=== PATIENT | male | born 1950 | race Caucasian/White ===

== ENCOUNTER 2024-01-14 11:50 | Emergency (ER) | payer OTHER, SELFPAY ==
[2024-01-14 12:26] VITALS: BP 135/87
--- NOTE | 2024-01-14 12:33 | ED.PDOC.TRB ---
ED Provider Triage
-
Patient seen by provider in Triage?: Seen in Triage
73-year-old male presents emergency department with multiple symptoms been ongoing for the last 2 weeks including fatigue, generalized weakness, shortness of breath, weight loss, decreased p.o. intake to solids and liquids, dark urine and generally
feeling unwell. No specific symptom brought patient to the ER today. No fevers. Overall healthy. Previous history of melanoma but not currently undergoing any current treatments. Hemodynamically stable. No acute distress but does appear
fatigued. Labs ordered. Stable for waiting room
[2024-01-14 12:54] LABS: % Basophils 0.7 % (0-2); % Immature Granulocytes 0.6 % (0-0.5); % Lymphocytes 12.6 % (20.5-51.1); % Monocytes 7.7 % (1.7-9.3); % Neutrophils 75.4 % (42.2-75.2); Absolute Basophils 0.1 10^3/uL (0-0.2); Absolute Eosinophils 0.3 10^3/uL (0-0.7); Absolute Immature Granulocytes 0.1 10^3/uL (0-0.05); Absolute Lymphocytes 1.1 10^3/uL (1.2-3.4); Absolute Monocytes 0.7 10^3/uL (0.1-0.6); Absolute Neutrophils 6.9 10^3/uL (1.4-6.5); Hematocrit 41.8 % (39.0-52.0); Hemoglobin 14.6 g/dL (13.0-18.0); Mean Corp Hgb Conc. 34.9 g/dL (33.0-37.0); Mean Corpuscular Hgb 31.3 pg (27.0-31.0); Mean Corpuscular Volume 89.5 fL (80.0-94.0); Mean Platelet Volume 10.6 fL (7.4-10.4); Nucleated Red Blood Cells % 0 % (-); Platelet Count 248 10^3/uL (130-400); Red Blood Cell Count 4.67 10^6/uL (4.70-6.10); Red Cell Dist. Width 13.1 % (11.5-14.5); White Blood Cell Count 9.1 10^3/uL (4.8-10.8)
[2024-01-14 13:07] LABS: ALT (SGPT) 168 U/L (0-50); AST (SGOT) 152 U/L (17-59); Albumin 3.7 g/dl (3.5-5.0); Alkaline Phosphatase 119 U/L (38-126); Blood Urea Nitrogen 20 mg/dl (9-20); Calcium 8.9 mg/dl (8.4-10.2); Carbon Dioxide 25 mmol/L (22-30); Chloride 102 mmol/L (98-107); Glucose 177 mg/dl (70-99); Potassium 4.3 mmol/L (3.5-5.1); Sodium 137 mmol/L (135-145); Total Bilirubin 0.4 mg/dl (0.2-1.3); Total Protein 6.9 g/dl (6.3-8.2); eGFR > 60.00
[2024-01-14 16:00] VITALS: BP 152/107
[2024-01-14 16:19] VITALS: BMI 26.0
[2024-01-14] MEDS: NSS 1000 IV (16:49)
--- NOTE | 2024-01-14 16:50 | EDRN ---
this RN attempted to placed a PIV and obtain labs, this RN notified IV team and IV team was able to place a PIV
[2024-01-14 17:00] VITALS: BP 125/78
[2024-01-14 17:10] LABS: Erythrocyte Sed Rate 42 mm/hour (0-20)
[2024-01-14 18:10] LABS: Urine Albumin Trace (Neg - Trace); Urine Bilirubin Negative (Negative); Urine Character Clear (Clear); Urine Color Yellow; Urine Glucose Negative (Negative); Urine Ketone Negative (Negative); Urine Leukocyte Trace (Negative); Urine Nitrite Negative (Negative); Urine Occult Blood Negative (Negative); Urine Specific Gravity 1.015 (<1.030); Urine Urobilinogen Negative (Neg - 1+)
[2024-01-14 18:13] LABS: Urine Red Blood Cell 0-2 /HPF (0-2); Urine White Cell 0-2 /HPF (0-5)
[2024-01-14 18:23] VITALS: BP 141/95
[2024-01-14 18:24] LABS: TSH Reflex To Free T4 0.67 uIU/ml (0.47-4.68)
[2024-01-14 18:26] LABS: COVID-19 Antigen Negative (Negative)
[2024-01-14 19:00] VITALS: BP 160/85
--- NOTE | 2024-01-14 19:55 | ED.GENMED ---
History of Present Illness
<Dony Bae PA-C - Last Filed: 01/14/24 23:43>
General
Chief Complaint: Breathing Problem
Source: patient
Exam Limitations: none
Time Seen by Provider: 01/14/24 15:57
Travel History
Have you had any contact with someone who has COVID-19?: No
Do you have any symptoms of coronavirus? Fever > 100 degrees, chills, cough, shortness of breath, sore throat, loss of taste or smell, muscle aches, or headache?: No
History of Present Illness
History of Present Illness:
73-year-old male presents with 7 to 10 days worth of fatigue lack of appetite weight loss cough shortness of breath. He notes no notable vomiting. He is moving his bowels normally. No known sick contacts. No other complaints at this time. He
saw his family doctor earlier this week and they did blood work which demonstrated elevated CRP and started on cefuroxime. He has had total of 2 doses of
Past History
<Dony Bae PA-C - Last Filed: 01/14/24 23:43>
Past History
ED Past Medical History: Seizures and Other (Past history of melanoma)
ED Past Surgical History: Other (Resection of skin melanoma)
Social History
Tobacco: Non-smoker
Alcohol: None
Personal:
Living: with family
Family History
Family History: Negative Diabetes, Hypertension, Early CAD, Asthma or Cancer
Phy Exam
<Dony Bae PA-C - Last Filed: 01/14/24 23:43>
Physical Exam
Physical Exam:
General: Well-appearing male no acute respiratory distress
HEENT: Normocephalic atraumatic
Heart: Regular rate and rhythm no murmurs
Lungs: No obvious wheeze or rales
Extremities: No cyanosis
Scores
<Dony Bae PA-C - Last Filed: 01/14/24 23:43>
Heart Failure Risk
Heart Failure Risk Score: Not Applicable
Course
<Dony Bae PA-C - Last Filed: 01/14/24 23:43>
Orders/Labs/Results
Orders:
Orders
01/14/24 12:39
C-Reactive Protein Urgent
Complete Blood Count/With Diff Urgent
Comprehensive Metabolic Panel Urgent
Erythrocyte Sed Rate Urgent
Lyme Progressive Urgent
TSH Reflex To Free T4 Urgent
Comment: SED RATE,CRP,LYME PROGRESSIVE,TSH REFLEX ADDED ON BY FLOOR 4:30PM 01-14-24
01/14/24 16:27
Add On- LAB Urgent
Tests Added?: crp, lyme progressive, sed rate, tsh relfex to t4
01/14/24 16:29
CR Chest - 2 Views Urgent
Comment:
Reason For Exam: cough, sob
01/14/24 16:45
0.9% Sodium Chloride 1000 ml [Nss] 1,000 ml IV BOLUS
01/14/24 17:34
COVID-19 Antigen Urgent
Source: Nasal Swab
Urinalysis Reflex To Culture Urgent
Date Specimen was Collected: 01/14/24
Time Specimen was Collected: 15:54
Urine Microscopic Reflex Cult Urgent
Blood Culture Q30M
DARIN Source: Blood/Venous
Specimen Description:
Blood Culture Q30M
DARIN Source: Blood/Venous
Specimen Description:
01/14/24 19:02
Electrocardiogram (*1) Urgent
Reason for Study: Shortness of Breath
EKG- Treatment ONCE
Abnormal Lab Results
01/14/24 01/14/24
12:39 17:34
RBC 4.67 L 10^6/uL
(4.70-6.10)
MCH 31.3 H pg
(27.0-31.0)
MPV 10.6 H fL
(7.4-10.4)
Abs Immat Gran (auto) 0.1 H 10^3/uL
(0-0.05)
Absolute Neuts (auto) 6.9 H 10^3/uL
(1.4-6.5)
Absolute Lymphs (auto) 1.1 L 10^3/uL
(1.2-3.4)
Absolute Monos (auto) 0.7 H 10^3/uL
(0.1-0.6)
Immature Gran % 0.6 H %
(0-0.5)
Neutrophils % 75.4 H %
(42.2-75.2)
Lymphocytes % 12.6 L %
(20.5-51.1)
ESR 42 H mm/hour
(0-20)
Glucose 177 H mg/dl
(70-99)
AST 152 H U/L
(17-59)
ALT 168 H U/L
(0-50)
C-Reactive Protein 253.70 H mg/L
(0.0-10.00)
Leukocyte Esterase Rfl Trace A
(Negative)
01/14/24 12:39
01/14/24 12:39
Vital Signs
Initial and Last Documented VS:
Initial Vital Signs
Temp Pulse Resp BP Pulse Ox
98.1 F 71 20 135/87 96
01/14/24 12:26 01/14/24 12:26 01/14/24 12:26 01/14/24 12:26 01/14/24 12:26
Last Documented Vital Signs
Temp Pulse Resp BP Pulse Ox
98.1 F 55 18 127/78 95
01/14/24 12:26 01/14/24 17:00 01/14/24 17:54 01/14/24 20:00 01/14/24 20:00
<Rusty Carrera, DO - Last Filed: 01/15/24 12:43>
Orders/Labs/Results
Orders:
Orders
01/14/24 12:39
C-Reactive Protein Urgent
Complete Blood Count/With Diff Urgent
Comprehensive Metabolic Panel Urgent
Erythrocyte Sed Rate Urgent
Lyme Progressive Urgent
TSH Reflex To Free T4 Urgent
Comment: SED RATE,CRP,LYME PROGRESSIVE,TSH REFLEX ADDED ON BY FLOOR 4:30PM 01-14-24
01/14/24 16:27
Add On- LAB Urgent
Tests Added?: crp, lyme progressive, sed rate, tsh relfex to t4
01/14/24 16:29
CR Chest - 2 Views Urgent
Comment:
Reason For Exam: cough, sob
01/14/24 16:45
0.9% Sodium Chloride 1000 ml [Nss] 1,000 ml IV BOLUS
01/14/24 17:34
COVID-19 Antigen Urgent
Source: Nasal Swab
Urinalysis Reflex To Culture Urgent
Date Specimen was Collected: 01/14/24
Time Specimen was Collected: 15:54
Urine Microscopic Reflex Cult Urgent
Blood Culture Q30M
DARIN Source: Blood/Venous
Specimen Description:
Blood Culture Q30M
DARIN Source: Blood/Venous
Specimen Description:
01/14/24 19:02
Electrocardiogram (*1) Urgent
Reason for Study: Shortness of Breath
EKG- Treatment ONCE
Abnormal Lab Results
01/14/24 01/14/24
12:39 17:34
RBC 4.67 L 10^6/uL
(4.70-6.10)
MCH 31.3 H pg
(27.0-31.0)
MPV 10.6 H fL
(7.4-10.4)
Abs Immat Gran (auto) 0.1 H 10^3/uL
(0-0.05)
Absolute Neuts (auto) 6.9 H 10^3/uL
(1.4-6.5)
Absolute Lymphs (auto) 1.1 L 10^3/uL
(1.2-3.4)
Absolute Monos (auto) 0.7 H 10^3/uL
(0.1-0.6)
Immature Gran % 0.6 H %
(0-0.5)
Neutrophils % 75.4 H %
(42.2-75.2)
Lymphocytes % 12.6 L %
(20.5-51.1)
ESR 42 H mm/hour
(0-20)
Glucose 177 H mg/dl
(70-99)
AST 152 H U/L
(17-59)
ALT 168 H U/L
(0-50)
C-Reactive Protein 253.70 H mg/L
(0.0-10.00)
Leukocyte Esterase Rfl Trace A
(Negative)
01/14/24 12:39
01/14/24 12:39
Vital Signs
Initial and Last Documented VS:
Initial Vital Signs
Temp Pulse Resp BP Pulse Ox
98.1 F 71 20 135/87 96
01/14/24 12:26 01/14/24 12:26 01/14/24 12:26 01/14/24 12:26 01/14/24 12:26
Last Documented Vital Signs
Temp Pulse Resp BP Pulse Ox
98.1 F 55 18 127/78 95
01/14/24 12:26 01/14/24 17:00 01/14/24 17:54 01/14/24 20:00 01/14/24 20:00
<Dony Bae PA-C - Last Filed: 01/14/24 23:43>
MDM/Problems Addressed
Differential Diagnosis Includes:
Generalized fatigue subtle cough body aches fever at the onset now just feels overall fatigued. Patient is in no respiratory distress. 98%. Will initiate workup with chest x-ray labs blood cultures Lyme test sed rate and CRP
I personally visualized x-rays which demonstrates pneumonia in the right middle lobe. White count is normal not hypoxic. Sed rate elevated and CRP elevated. Overall nontoxic in appearance. Will add Zithromax to his current cefuroxime. There is
a Lyme study pending.
<Dony Bae PA-C - Last Filed: 01/14/24 23:43>
*Critical Care Note
Total Time (30-74mins, 75-104mins- exclusive of procedures): Not Applicable
<Dony Bae PA-C - Last Filed: 01/14/24 23:43>
Update Note
Update Note:
Admission not indicated secondary to nontender appearance
ED Attending Note
<Dony Bae PA-C - Last Filed: 01/14/24 23:43>
-
Portions of this chart may have been created with voice recognition software.� Occasional wrong word or��sound alike� substitutions may have occurred due to the inherent limitations of voice recognition software.
<Rusty Carrera, - Last Filed: 01/15/24 12:43>
ED Attending Note
Patient seen and examined by attending physician: Yes
ED Attending Note:
I have reviewed and agree with history and treatment plan by Lobito Bae. My exam revealed 73-year-old male no acute distress, clear lungs. Chest x-ray consistent with right middle lobe pneumonia. Oxygen stable, vital signs stable. Will add
azithromycin to treatment regimen. Follow-up with primary
Discharge Plan
Departure
Patient Disposition: Home (Routine Discharge)
Date of Disposition: 01/14/24
Time of Disposition: 19:57
Patient with high blood pressure during this ER visit?: No
Discharge Problem:
Pneumonia
Instructions: Pneumonia
Prescriptions:
New
azithromycin [Zithromax] 250 mg tablet
250 mg PO DAILY 6 Days Qty: 6 0RF
Rx Instructions:
Take 2 tablets on day one. Then take 1 tablet on days 2-5.
No Action
cefuroxime axetil 250 mg Tablet
250 mg PO DAILY
phenytoin 50 mg Tablet,Chewable
300 mg PO HS
Referrals:
Terry Gregg, [Family Provider] -
Activity Restrictions/Additional Instructions:
Continue current antibiotics. Add Zithromax to the regimen. Stay hydrated. Use ibuprofen or Tylenol if needed for aches or fever. Please return here for persistent fever vomiting increased shortness of breath or other concerning findings.
Follow-up with family doctor otherwise
Interventions
Interventions:
*Risk Screen - Suicide Last Done: 01/14/24 16:19
*General Assessment Last Done: 01/14/24 16:19
*Neglect/Abuse Screening Last Done: 01/14/24 16:19
ED- Fall Risk Assessment Last Done: 01/14/24 16:19
*ED COVID-19 Vaccine History Last Done: 01/14/24 12:26
*Nursing Disposition Last Done: 01/14/24 20:18
ED- Cardiac Assessment Last Done: 01/14/24 16:19
ED- Pulmonary Assessment Last Done: 01/14/24 16:19
Discharge Date and Time
Discharge Date/Time: 01/14/24 20:19
Print Language: ESTONIAN
[2024-01-14 20:00] VITALS: BP 127/78
[2024-01-18 14:33] LABS: Lyme Antibody Screen, EIA Presump. Positive (Negative)
== END 2024-01-14 20:19 | disposition home or self-care (01) ==
LOC: EMR 11:50
PROVIDERS: Physician Assistant; Physician Assistant Medical; EMERGENCY PHYSICIAN Emergency Medicine; FAMILY PHYSICIAN Student in an Organized Health Care Education/Training Program
DX: J18.9 Pneumonia, unspecified organism (principal); Z11.52 Encounter for screening for COVID-19; R56.9 Unspecified convulsions; Z85.820 Personal history of malignant melanoma of skin
CPT/HCPCS: 99284; 96360; 71046; 80053; 81003; 81015; 84443; 85025; 85652; 86140; 86617; 86618; 87040; 87811; 93005

== ENCOUNTER 2024-10-11 03:53 | Emergency (ER) | payer OTHER, SELFPAY ==
[2024-10-11 03:54] VITALS: BP 177/93
[2024-10-11 03:56] VITALS: BMI 27.3
[2024-10-11 04:00] VITALS: BP 172/93
[2024-10-11 04:16] LABS: COVID-19 Antigen Negative (Negative)
--- NOTE | 2024-10-11 04:32 | ED.GENMED ---
History of Present Illness
General
Chief Complaint: Cold/Flu/URI Symptoms
Source: patient, spouse and ambulance crew
Exam Limitations: none
Time Seen by Provider: 10/11/24 04:22
Nursing documentation reviewed up to this point in time: agreed with
History of Present Illness
History of Present Illness:
This is a 74-year-old gentleman with history of epilepsy, remote history of melanoma�surgical excision without history of recurrence nor metastatic disease. He presents with 3-1/2-day history of flulike symptoms, cough, fever, chills, generalized
malaise. He denies nausea or vomiting, no diarrhea or constipation. No known close contacts with similar symptoms.
No recent travel.
He did receive annual influenza vaccine this year.
He has been taking Tylenol as well as Mucinex, last dose at 8 PM.
Arrives via EMS due to persistent symptoms and return of fever with shaking chills.
He has had a cough but he denies shortness of breath, no chest pain.
No leg pain or swelling.
Past History
Past History
ED Past Medical History: Seizures and Other (Past history of melanoma)
ED Past Surgical History: Other (Resection of skin melanoma)
Social History
Tobacco: Non-smoker
Alcohol: None
Personal:
Living: with family
Employment: Retired
Family History
Family History: Negative Diabetes, Hypertension, Early CAD, Asthma or Cancer
Phy Exam
Physical Exam
Physical Exam:
GENERAL: 74-year-old gentleman appears his stated age, awake and alert, pleasant, appears in no acute distress. Oral temperature 100.5 �F. is accompanying.
EYE: anicteric
NECK: Supple, nontender, no meningismus, no significant adenopathy.
ENT: posterior pharynx is clear, oral mucosa is moist. TM clear b/l, nares patent.
CARDIAC: Regular rate and rhythm. no murmur.
LUNGS: Clear breath sounds bilaterally, no acute respiratory distress, no wheezes/rales/rhonchi
ABDOMEN: Soft, nondistended, without focal tenderness, no r/g, no cvat. normoactive BS.
NEUROLOGICAL: Alert and oriented x3, no focal neuro deficits.
SKIN: Warm and dry, normal color, skin intact. No rash.
MUSCULOSKELETAL: No C/C/E. peripheral pulses are full and equal b/l. No palpable tenderness.
PSYCH: Normal and appropriate interaction.
Course
Orders/Labs/Results
Orders:
Orders
10/11/24 03:58
COVID-19 Antigen Urgent
Source: Nasal Swab
10/11/24 03:59
Influenza A+B Rapid Molecular Urgent
DARIN Source: Nasal Swab
Specimen Description:
10/11/24 04:30
Encourage PO Hydration-Treatme ONCE
Ibuprofen [Motrin] 800 mg PO NOW STA
Vital Signs
Temp: 100.5 F
Initial and Last Documented VS:
Initial Vital Signs
BP
177/93
10/11/24 03:54
Last Documented Vital Signs
Temp BP Pulse Ox
98.5 F 172/93 95
10/11/24 03:56 10/11/24 04:00 10/11/24 04:00
MDM/Problems Addressed
Differential Diagnosis Includes:
Concern for URI, viral URI, COVID-19, influenza. Other consideration is pneumonia.
Patient is overall well in appearance.
Low-grade fever noted 100.5 �F.
No respiratory distress. No significant cough noted and pulse ox is normal.
No history of chronic lung disease nor immune compromise.
COVID-19 is negative but influenza is positive for influenza B.
As URI symptoms began 3 and half days ago, Tamiflu at this point would be ineffective.
Recommend supportive measures, staying well-hydrated, treating fever with Tylenol versus ibuprofen.
Will give a dose of ibuprofen now and encourage clear liquids.
Chronic conditions affecting care: Neurological disorder (Seizure disorder)
*Pulse Oximetry
Patient hypoxic: no
*Critical Care Note
Total Time (30-74mins, 75-104mins- exclusive of procedures): Not Applicable
ED Attending Note
-
Portions of this chart may have been created with voice recognition software.� Occasional wrong word or��sound alike� substitutions may have occurred due to the inherent limitations of voice recognition software.
Discharge Plan
Departure
Patient with high blood pressure during this ER visit?: No
Condition: Good
Discharge Problem:
Influenza B
Instructions: Flu in adults - Discharge instructions
Prescriptions:
No Action
cefuroxime axetil 250 mg Tablet
250 mg PO DAILY
phenytoin 50 mg Tablet,Chewable
300 mg PO HS
azithromycin [Zithromax] 250 mg tablet
250 mg PO DAILY 6 Days Qty: 6 0RF
Rx Instructions:
Take 2 tablets on day one. Then take 1 tablet on days 2-5.
Referrals:
Terry Gregg, DO [Active] - Call in 1-3 days for appt
Interventions
Interventions:
*Risk Screen - Suicide Last Done: 10/11/24 03:56
*General Assessment Last Done: 10/11/24 03:56
*Neglect/Abuse Screening Last Done: 10/11/24 03:56
ED- Fall Risk Assessment Last Done: 10/11/24 03:56
*ED COVID-19 Vaccine History Last Done: 10/11/24 03:56
ED- Pulmonary Assessment Last Done: 10/11/24 03:56
Discharge Date and Time
Print Language: KITTITIAN
[2024-10-11] MEDS: MOTRIN 800 MG PO (04:37)
[2024-10-11 05:00] VITALS: BP 167/85
[2024-10-11 06:00] VITALS: BP 145/75
== END 2024-10-11 06:25 | disposition home or self-care (01) ==
LOC: EMR 03:53
PROVIDERS: EMERGENCY PHYSICIAN Emergency Medicine; FAMILY PHYSICIAN Student in an Organized Health Care Education/Training Program
DX: J10.1 Influenza due to other identified influenza virus with other respiratory manifestations (principal); Z11.52 Encounter for screening for COVID-19; G40.909 Epilepsy, unspecified, not intractable, without status epilepticus; Z85.820 Personal history of malignant melanoma of skin
CPT/HCPCS: 99283; 87502; 87811